=== PATIENT | male | born 1985 | race Caucasian/White ===

== ENCOUNTER 2023-09-08 07:23 | Emergency (ER) | payer OTHER ==
[2023-09-08 07:41] VITALS: RESP 18
[2023-09-08] MEDS ORDERED: ONDANSETRON 4 MG/2 ML VIAL IVP STA (07:55)
[2023-09-08] MEDS ORDERED: KETOROLAC 15 MG/ML 1 ML VIAL IVP STA (07:55)
[2023-09-08] MEDS ORDERED: SODIUM CHLORIDE 0.9% 1,000 ML IV STA (07:55)
[2023-09-08 08:19] LABS: Basophils % (A) 0 %; Eosinophils # (A) 0.1 k/uL (0-0.7); Eosinophils % (A) 2 %; HCT 43.6 % (39.0-53.0); HGB 15.4 gm/dL (13.0-17.5); Lymphocytes # (A) 1.7 k/uL (1.0-4.8); Lymphocytes % (A) 24 %; MCH 30.8 pg (25.0-35.0); MCHC 35.4 g/dL (31.0-37.0); MCV 87.1 fL (80.0-100.0); Mean Platelet Volume 7.4; Monocytes # (A) 0.4 k/uL (0-1.0); Monocytes % (A) 5 %; Neutrophils # (A) 4.9 k/uL (1.3-7.7); Neutrophils % (A) 68 %; Platelet Count 263 k/uL (150-450); RDW 12.4 % (11.5-15.5); WBC 7.2 k/uL (3.8-10.6)
[2023-09-08 08:36] LABS: Appearance,Urine Clear (Clear); Bacteria,Urine Rare /hpf; Bilirubin,Urine Negative (Negative); Blood,Urine Large (Negative); Color,Urine Light Yellow; Glucose,Urine (UA) Negative (Negative); Ketones,Urine Negative (Negative); Leukocyte Esterase,Urine Negative (Negative); Mucus,Urine Occasional /hpf; Nitrite,Urine Negative (Negative); PH, Urine 5.5 (5.0-8.0); Protein,Urine Trace (Negative); RBC,Urine >182 /hpf (0-5); Specific Gravity,Urine 1.013 (1.001-1.035); Squamous Epithelial Cell,Urine <1 /hpf (0-4); Urobilinogen,Urine <2.0 mg/dL (<2.0); WBC,Urine 2 /hpf (0-5)
[2023-09-08 08:54] LABS: ALT 77 U/L (4-49); African American GFR (CKD) >90 (>60 ml/min/1.73 sqM); Albumin 4.6 g/dL (3.5-5.0); Amylase 53 U/L (30-110); Anion Gap 11 mmol/L; Blood Urea Nitrogen 13 mg/dL (9-20); Calcium 9.5 mg/dL (8.4-10.2); Carbon Dioxide 26 mmol/L (22-30); Chloride 101 mmol/L (98-107); Glucose 100 mg/dL (74-99); Lipase 52 U/L (23-300); Non-African American GFR(CKD) >90 (>60 ml/min/1.73 sqM); Sodium 138 mmol/L (137-145); Total Bilirubin 0.9 mg/dL (0.2-1.3); Total Protein 7.6 g/dL (6.3-8.2)
[2023-09-08 08:59] LABS: AST 50 U/L (17-59); Alkaline Phosphatase 54 U/L (38-126); Potassium 4.6 mmol/L (3.5-5.1)
--- NOTE | 2023-09-08 09:23 | ED ---
General Adult HPI - General Chief complaint: Back Pain/Injury Stated complaint: back pain Time Seen by Provider: 09/08/23 07:45 Source: patient, RN notes reviewed, old records reviewed Mode of arrival: ambulatory Limitations: no limitations - History of Present Illness Initial comments: Patient is a 37-year-old male who presents in his apartment complaining of left back pain and flank pain. States he had an episode earlier this week that resolved but then had another episode overnight. States it is left-sided back pain with radiation around his left flank and down towards his groin and occasionally into the left testicle. Currently pain is approximately a 1 out of 10. States is 10 out of 10 earlier. Had nausea but no emesis. No other acute complaints at this time. Has noticed some hematuria. No history of kidney stones but is concerned he may have one. Since her further evaluation. Denies fevers, chills, cough, chest pain. No significant past medical history. - Related Data Previous Rx's Medication Instructions Recorded Tamsulosin [Flomax] 0.4 mg PO DAILY 14 Days #14 cap 09/08/23 Allergies Allergy/AdvReac Type Severity Reaction Status Date / Time No Known Allergies Allergy Verified 09/08/23 07:27 Review of Systems ROS Statement: Those systems with pertinent positive or pertinent negative responses have been documented in the HPI. Review of Systems: CONST: Denies fever EYES: Denies blurry vision ENT: Denies nasal congestion C/V: Denies Chest pain RESP: Denies shortness of breath GI: Endorses mild left flank pain : Denies dysuria SKIN: Denies rash. MSK: Denies joint pain. NEURO: Denies headache ROS Other: All systems not noted in ROS Statement are negative. Past Medical History Past Medical History: No Reported History History of Any Multi-Drug Resistant Organisms: None Reported Past Surgical History: No Surgical Hx Reported Past Psychological History: No Psychological Hx Reported Smoking Status: Never smoker Past Alcohol Use History: Occasional Past Drug Use History: None Reported General Exam - General Exam Comments Initial Comments: General: Appears in no acute distress. HEAD: Normal with no signs of head trauma. EYES: PERRLA, EOMI, conjunctiva normal, no discharge. ENT: Hearing grossly intact, normal oropharynx. RESPIRATORY: Clear breath sounds bilaterally. No wheezes, rales, or rhonchi. C/V: Regular rate and rhythm. S1 and S2 auscultated, no edema, peripheral pulses 2+ and intact throughout ABD: Abdomen soft, nondistended. Mild tenderness palpation left flank and left CVA region. No guarding. No peritoneal signs. No rebound tenderness. Testicular exam unremarkable. No tenderness. No skin changes. EXT: Normal range of motion, no obvious deformity SKIN: No rashes or lesions observed on exposed skin. NEURO: Alert and oriented x 4. Limitations: no limitations Course Vital Signs 09/08/23 07:27 Temperature 98 F Pulse Rate 120 H Respiratory 18 Rate Blood Pressure 200/105 O2 Sat by Pulse 98 Oximetry Medical Decision Making - Medical Decision Making Was pt. sent in by a medical professional or institution (, PA, SWEATER OPERATOR, urgent care, hospital, or long-term...) When possible be specific @ -No Did you speak to anyone other than the patient for history (EMS, parent, family, police, friend...)? What history was obtained from this source @ -No Did you review nursing and triage notes (agree or disagree)? Why? @ -I reviewed and agree with nursing and triage notes Were old charts reviewed (outside hosp., previous admission, EMS record, old EKG, old radiological studies, urgent care reports/EKG's, long-term records)? Report findings @ -No old charts were reviewed Differential Diagnosis (chest pain, altered mental status, abdominal pain women, abdominal pain men, vaginal bleeding, weakness, fever, dyspnea, syncope, headache, dizziness, GI bleed, back pain, seizure, CVA, palpatations, mental health, musculoskeletal)? @ -Differential Abdominal Pain Men: Appendicitis, cholecystitis, diverticulosis, ischemic bowel, pancreatitis, hepatitis, UTI, gastroenteritis, AAA, incarcerated hernia, bowel obstruction, constipation, inflammatory bowel, hepatitis, peptic ulcer disease, splenic infarction, perforated viscus, testicular torsion, this is not meant to be an all-inclusive list EKG interpreted by me (3pts min.). @ -None done X-rays interpreted by me (1pt min.). @ -[facility] x-ray negative for any obvious acute abdominal process. CT interpreted by me (1pt min.). @ -CT reveals a 6 mm x 3.5 mm calculus in the proximal left ureter with mild- moderate hydronephrosis. U/S interpreted by me (1pt. min.). @ -None done What testing was considered but not performed or refused? (CT, X-rays, U/S, labs)? Why? @ -None What meds were considered but not given or refused? Why? @ -None Did you discuss the management of the patient with other professionals (professionals i.e. , PA, SWEATER OPERATOR, lab, RT, psych nurse, social worker palliative care, evaluator transfer students, teacher, corrections officer, foster care case manager)? Give summary @ -No Was smoking cessation discussed for >3mins.? @ -No Was critical care preformed (if so, how long)? @ -No Were there social determinants of health that impacted care today? How? (Homelessness, low income, unemployed, alcoholism, drug addiction, transportation, low edu. Level, literacy, decrease access to med. care, [facility], rehab)? @ -No Was there de-escalation of care discussed even if they declined (Discuss DNR or withdrawal of care, Hospice)? DNR status @ -No What co-morbidities impacted this encounter? (DM, HTN, Smoking, COPD, CAD, Cancer, CVA, ARF, Chemo, Hep., AIDS, mental health diagnosis, sleep apnea, morbid obesity)? @ -None Was patient admitted / discharged? Hospital course, mention meds given and route, prescriptions, significant lab abnormalities, going to OR and other pertinent info. @ -Based on the patient's presentation and physical exam, there is concern for acute intra-abdominal process for the patient's current symptoms. Since with intermittent left flank pain with hematuria, I'm a differential is kidney stone. We will obtain CT without contrast of the abdomen and pelvis as well as abdominal laboratory studies as well as a urine. Patient was in agreement this plan. He will be sent directly treated with IV fluids, Toradol, Zofran. Patient was in agreement this plan. Patient initially hypertensive and tachycardic in triage secondary to pain. We will repeat vital signs after medications administered. CT reveals a mildly obstructive 3.5 x 6 mm calculus in the proximal left ureter. There is mild to moderate hydronephrosis on the left as well. Patient's laboratory studies are negative for any evidence of acute infection or other etiology at this time onset. Patient does have hematuria. I discussed results the patient. Pain is controlled. Nausea is controlled. He'll be discharged home at this time with diagnosis of left ureterolithiasis. I'll provide him with a prescription for Flomax. Patient can use Zofran tablets as well as Tylenol threes for pain. Patient continues [id number] Motrin for pain. He was in agreement this plan. Strict return precautions discussed. Leg ulcers elevated blood pressures, I recommend he monitor it. He currently is asymptomatic but hypertension could be secondary to a stone. Recommended he continue to monitor at home and follow-up with his PCP. He will also be given follow-up with urology. Patient was in agreement this plan. I will provide the patient with a prescription for Flomax. I instructed the patient to follow up with their PCP in the next 1-3 days. I provided contact information for follow up with urology. I explained that the patient should return to the emergency department if they experience any worsening symptoms. Strict return precautions were discussed with the patient. The patient expressed understanding of these instructions. I answered all questions that the patient had. The patient was discharged home in good condition with their prescriptions and follow up information. Undiagnosed new problem with uncertain prognosis? @ -No Drug Therapy requiring intensive monitoring for toxicity (Heparin, Nitro, Insulin, Cardizem)? @ -No Were any procedures done? @ -No Diagnosis/symptom? @ -Left ureterolithiasis Acute, or Chronic, or Acute on Chronic? @ -Acute Uncomplicated (without systemic symptoms) or Complicated (systemic symptoms)? @ -Complicated Side effects of treatment? @ -none Exacerbation, Progression, or Severe Exacerbation] @ -no Poses a threat to life or bodily function? @ -Unlikely - Lab Data Result diagrams: 09/08/23 08:10 09/08/23 08:10 Lab Results 09/08/23 09/08/23 09/08/23 Range/Units 08:10 08:10 08:10 WBC 7.2 (3.8-10.6) k/uL RBC 5.00 (4.30-5.90) m/uL Hgb 15.4 (13.0-17.5) gm/dL Hct 43.6 (39.0-53.0) % MCV 87.1 (80.0-100.0) fL MCH 30.8 (25.0-35.0) pg MCHC 35.4 (31.0-37.0) g/dL RDW 12.4 (11.5-15.5) % Plt Count 263 (150-450) k/uL MPV 7.4 Neutrophils % 68 % Lymphocytes % 24 % Monocytes % 5 % Eosinophils % 2 % Basophils % 0 % Neutrophils # 4.9 (1.3-7.7) k/uL Lymphocytes # 1.7 (1.0-4.8) k/uL Monocytes # 0.4 (0-1.0) k/uL Eosinophils # 0.1 (0-0.7) k/uL Basophils # 0.0 (0-0.2) k/uL Sodium 138 (137-145) mmol/L Potassium 4.6 (3.5-5.1) mmol/L Chloride 101 (98-107) mmol/L Carbon Dioxide 26 (22-30) mmol/L Anion Gap 11 mmol/L BUN 13 (9-20) mg/dL Creatinine 0.89 (0.66-1.25) mg/dL Est GFR (CKD-EPI)AfAm >90 (>60 ml/min/1.73 sqM) Est GFR (CKD-EPI)NonAf >90 (>60 ml/min/1.73 sqM) Glucose 100 H (74-99) mg/dL Calcium 9.5 (8.4-10.2) mg/dL Total Bilirubin 0.9 (0.2-1.3) mg/dL AST 50 (17-59) U/L ALT 77 H (4-49) U/L Alkaline Phosphatase 54 (38-126) U/L Total Protein 7.6 (6.3-8.2) g/dL Albumin 4.6 (3.5-5.0) g/dL Amylase 53 (30-110) U/L Lipase 52 (23-300) U/L Urine Color Light Yellow Urine Appearance Clear (Clear) Urine pH 5.5 (5.0-8.0) Ur Specific [place] 1.013 (1.001-1.035) Urine Protein Trace H (Negative) Urine Glucose (UA) Negative (Negative) Urine Ketones Negative (Negative) Urine Blood Large H (Negative) Urine Nitrite Negative (Negative) Urine Bilirubin Negative (Negative) Urine Urobilinogen <2.0 (<2.0) mg/dL Ur Leukocyte Esterase Negative (Negative) Urine RBC >182 H (0-5) /hpf Urine WBC 2 (0-5) /hpf Ur Squamous Epith Cells <1 (0-4) /hpf Urine Bacteria Rare H (None) /hpf Urine Mucus Occasional H (None) /hpf Disposition Clinical Impression: Ureterolithiasis Disposition: HOME SELF-CARE Condition: Good Instructions (If sedation given, give patient instructions): Kidney Stones (ED) Prescriptions: Tamsulosin [Flomax] 0.4 mg PO DAILY 14 Days #14 cap Is patient prescribed a controlled substance at d/c from ED?: No Referrals: Wesley Cherry MD [Primary Care Provider] - 1-2 days Malik Prince MD [STAFF PHYSICIAN] - 1-2 days Time of Disposition: 09:48
--- NOTE | 2023-09-08 09:38 | XR ---
EXAMINATION TYPE: XR [facility] DATE OF EXAM: 09/08/2023 8:46 AM CLINICAL INDICATION:Male, 37 years old with history of abdominal pain; H COMPARISON: Correlation with same-day CT scan. TECHNIQUE: One upright radiographic view of the abdomen was obtained. FINDINGS: The bowel gas pattern is nonspecific without dilated loops of small or large bowel. Fecal m aterial and gas are demonstrated throughout the colon and rectum. Moderate amount of colonic stool, mostly on the right. There is no evidence for organomegaly or pneumoperitoneum. Faintly seen small calcification on the left at L3, may correspond to known ureteral stone. The osseous structures are intact. Likely bone island left femur intertrochanteric. IMPRESSION: Nonspecific, likely nonobstructive bowel gas pattern. No free air detected. Moderate colonic stool, correlate for constipation. Faintly seen small calcification on the left at L3, may correspond to known ureteral stone.
[2023-09-08] MEDS ORDERED: ONDANSETRON 4 MG ODT STARTER PACK 2 TAB BTL PO STA (09:44)
[2023-09-08] MEDS ORDERED: ACET/COD 300 MG/30 MG STARTER PACK 6 TAB BTL PO STA (09:44)
[2023-09-08] MEDS ORDERED: TAMSULOSIN 0.4 MG CAP.ER.24H PO STA (09:45)
--- NOTE | 2023-09-08 09:52 | CT ---
EXAMINATION TYPE: CT abdomen pelvis wo con CT DLP: 962.3 mGycm, Automated exposure control for dose reduction was used. DATE OF EXAM: 09/08/2023 8:54 AM COMPARISON: No prior CT. Correlation with same day K[facility]. CLINICAL INDICATION:Male, 37 years old with history of abdominal pain. left flank.; left flank pain TECHNIQUE: Axial CT of the abdomen and pelvis performed without contrast, renal stone protocol. Sagi ttal and coronal reformats were created on a separate workstation. Contrast used: mL of , (none if empty) Oral contrast used: without Oral Contrast (none if empty) FINDINGS: LOWER CHEST: Unremarkable ABDOMEN LIVER: Patchy geographic areas of low and high attenuation throughout the liver, suggesting moderate to severe hepatic steatosis. No focal mass identified. Portal veins are enhancing. GALLBLADDER AND BILE DUCTS: Gallbladder is nondistended. No focal calcified gallstones can be seen. S lightly higher than expected attenuation of the gallbladder contents could represent hyperdense sludg e or vicarious excretion. PANCREAS: Unremarkable. SPLEEN: Unremarkable. ADRENAL GLANDS: Unremarkable. KIDNEYS AND URETERS: Kidneys are symmetric in size. Small cortical based partially excluded nodule fr om the left kidney is not fully characterized but could be a cyst. No intrarenal calculi are seen. In the proximal left ureter (at about the L3 level), there is a 3.5 x 6 mm calculus, with mild/moderate upstream hydroureteronephrosis. PELVIS BLADDER: Incompletely distended but grossly unremarkable. REPRODUCTIVE: Normal-sized prostate with some coarse central calcifications. ABDOMEN & PELVIS STOMACH AND BOWEL: Stomach and duodenum are unremarkable. No evidence of bowel obstruction. The appen christina appears within normal limits. Moderate colonic stool, greatest on the right. A few scattered dive rticula farther distally, without evidence of acute diverticulitis. PERITONEUM/RETROPERITONEUM: No evidence of pneumoperitoneum or free fluid. VASCULATURE: No evidence of aortic aneurysm. MUSCULOSKELETAL: No acute osseous abnormality. Small sclerotic density in the intertrochanteric left femur, likely bone island. LYMPH NODES: No gross evidence for lymphadenopathy. SOFT TISSUE/ABDOMINAL WALL: Small fat-containing inguinal hernias. No acute finding. IMPRESSION: 1. Obstructing 3.5 x 6 mm calculus in the proximal left ureter, with mild/moderate left-sided hydrou reteronephrosis. 2. Moderate to severe hepatic steatosis. 3. No evidence of bowel wall pneumatosis, obstruction, or free air. Normal appendix. 4. Moderate colonic stool, correlate for constipation. 5. Colonic diverticular disease, without evidence of acute diverticulitis.
[2023-09-08 10:24] VITALS: BP 163/101; PULSE 93; TEMP 98.1
== END 2023-09-08 10:30 | disposition home or self-care (01) ==
LOC: EC 07:23
DX: N13.2 Hydronephrosis with renal and ureteral calculous obstruction (principal)
CPT/HCPCS: 36415; 80053; 82150; 83690; 85025; 81001; 74018; 74176; 99284; 96374; 96375; 96361; J2405; J1885; S0119